=== PATIENT | female | born 1930 | race Caucasian/White ===

== ENCOUNTER 2018-09-01 17:33 | Emergency (ER) | payer MEDICARE, BC ==
[2018-09-01 18:54] LABS: Hemoglobin 14.7 g/dL (12.0-16.0); Mean Corpuscular HGB CONC 33.9 g/dL (32.0-36.0); Mean Corpuscular Hemoglobin 34.7 pg (27.0-31.0); Mean Platelet Volume 6.8 fL (7.4-10.4); Platelet Count 150 thou/uL (130-400); RBC Distribution Width 12.5 % (11.5-14.5); Red Blood Cell (RBC) Count 4.23 mill/uL (4.20-5.40); White Blood Cell (WBC) Count 7.6 thou/uL (4.8-10.8)
[2018-09-01 19:03] LABS: #Basophils 0.1 thou/uL (0.0-0.2); #Eosinphils 0.1 thou/uL (0.0-0.7); #Lymphocytes 2.2 thou/uL (1.20-3.40); #Monocytes 0.5 thou/uL (0.11-0.59); #Neutrophils 4.9 thou/uL (1.40-6.50); %Basophils 0.7 % (0.0-1.0); %Eosinophils 0.7 % (0.0-10.0); %Lymphocytes 28.5 % (21.0-51.0); %Monocytes 5.9 % (0.0-10.0); %Neutrophils 64.3 % (42.0-75.0); MDiff Complete? YES; Macrocytosis SLIGHT = 6-15 cells (100X) (0-5/hpf)
[2018-09-01 19:09] LABS: Clarity Clear (Clear); pH, Urine 6.5 (5.0-9.0)
[2018-09-01 19:09] LABS: ALT (SGPT) 41 U/L (8-55); AST (SGOT) 19 U/L (5-34); Albumin 3.9 g/dL (3.4-4.8); Alkaline Phosphatase 78 U/L (40-150); Anion Gap 12 mmol/L (10-20); BUN (Urea Nitrogen) 19 mg/dL (9.8-20.1); Bilirubin, Total 0.6 mg/dL (0.2-1.2); Calc. Creatinine Clearance 0 mL/min (70-130); Calcium 9.6 mg/dL (7.8-10.44); Carbon Dioxide 28 mmol/L (23-31); Chloride 103 mmol/L (98-107); Estimated GFR-MDRD 56; Globulin 3.2 g/dL (2.4-3.5); Glucose 154 mg/dL (83-110); Lipase 20 U/L (8-78); Potassium 4.3 mmol/L (3.5-5.1); Protein, Total 7.1 g/dL (6.0-8.3); Sodium 139 mmol/L (136-145)
[2018-09-01 19:10] LABS: Bilirubin Negative (Negative); Blood, Urine Trace (Negative); Glucose, Urine (Dipstick) Negative (Negative); Leukocyte Small (Negative); Nitrite Negative (Negative); Protein, Urine (Dipstick) Negative (Neg-Trace); Urobilinogen 0.2 mg/dL (0.2-1.0)
[2018-09-01 19:12] LABS: Bacteria/HPF Rare-Few HPF (None Seen); RBC/HPF 0-3 HPF (0-3); Squamous Epithelial 0-3 HPF (0-3); WBC/HPF 0-3 HPF (0-3)
--- NOTE | 2018-09-01 19:56 | CT ---
HEAD CT NONCONTRAST 09/01/18 INDICATION: Headache. History of strokes. There is age appropriate site of ventricular system. Mild chronic ischemic disease is present within the cerebral white matter. There is no acute intracranial hemorrhage, mass effect, or midline shift. No acute fluid level of the visualized paranasal sinuses or mastoid air cells. IMPRESSION: No acute intracranial hemorrhage or mass effect. Mild chronic ischemic disease. POS: [facility]
--- NOTE | 2018-09-01 19:58 | RAD ---
FRONTAL VIEW CHEST: 09/01/18 INDICATION: New onset chest pain, headache, history of strokes. FINDINGS: Comparing to 05/15/18 exam there has been no significant interval detrimental change. Valvular calcifi cation overlying the cardiac silhouette is again seen. the lungs are mildly hypoinflated with a sligh t degree of interstitial prominence. No significant effusion or discrete pneumothorax. There is promi nence of the cardiac silhouette and pulmonary vasculature. IMPRESSION: Findings favor mild fluid overload related to CHF. POS: [id number]
== END 2018-09-01 20:29 | disposition home or self-care (01) ==
LOC: BURERS 17:33
DX: I20.8 Other forms of angina pectoris (principal); M54.12 Radiculopathy, cervical region; R51 Headache; E11.9 Type 2 diabetes mellitus without complications; E03.9 Hypothyroidism, unspecified; K21.9 Gastro-esophageal reflux disease without esophagitis; I25.10 Atherosclerotic heart disease of native coronary artery without angina pectoris; I10 Essential (primary) hypertension; Z86.73 Personal history of transient ischemic attack (TIA), and cerebral infarction without residual deficits; Z79.899 Other long term (current) drug therapy; Z79.82 Long term (current) use of aspirin
CPT/HCPCS: 70450; 71045; 80053; 81003; 81015; 83690; 83880; 84484; 85025; 93005; 94760